=== PATIENT | female | born 1990 | race Caucasian/White ===

== ENCOUNTER → 2019-12-29 11:24 | Outpatient (BNVA) | payer MEDICAID, SELFPAY | PROVIDERS: PCP Student in an Organized Health Care Education/Training Program; Referring Provider Student in an Organized Health Care Education/Training Program; Visit Provider Obstetrics & Gynecology | DX: O00.90 Unspecified ectopic pregnancy without intrauterine pregnancy (principal) | CPT/HCPCS: 99213 ==

== ENCOUNTER 2019-12-31 13:00 | Outpatient (REF) | payer MEDICAID, SELFPAY ==
[2019-12-31 12:07] LABS: HCG Quantitative 9 mIU/mL
== END 2019-12-31 13:01 | disposition home or self-care (01) ==
LOC: HO.LAB 13:00
PROVIDERS: PCP Student in an Organized Health Care Education/Training Program; Visit Provider Obstetrics & Gynecology
DX: O00.90 Unspecified ectopic pregnancy without intrauterine pregnancy (principal)
CPT/HCPCS: 84702

== ENCOUNTER 2020-01-16 09:06 | Outpatient (REF) | payer MEDICAID, SELFPAY ==
[2020-01-16 11:03] LABS: HCG Quantitative < 2 mIU/mL
== END 2020-01-16 09:07 | disposition home or self-care (01) ==
LOC: HO.LAB 09:06
PROVIDERS: PCP Student in an Organized Health Care Education/Training Program; Visit Provider Obstetrics & Gynecology
DX: O00.90 Unspecified ectopic pregnancy without intrauterine pregnancy (principal); Z3A.00 Weeks of gestation of pregnancy not specified
CPT/HCPCS: 84702

== ENCOUNTER 2020-03-31 09:39 | Outpatient (REF) | payer MEDICAID, SELFPAY ==
[2020-04-06 02:32] LABS: HPV mRNA E6/E7 rflx Not Detected (Not Detected)
== END 2020-03-31 09:40 | disposition home or self-care (01) ==
LOC: HO.LAB 09:39
PROVIDERS: Visit Provider Obstetrics & Gynecology
DX: Z12.4 Encounter for screening for malignant neoplasm of cervix (principal)
CPT/HCPCS: 36415; 87624; 88142

== ENCOUNTER → 2020-08-25 10:53 | Outpatient (BNVA) | payer MEDICAID, SELFPAY | PROVIDERS: Visit Provider Advanced Practice Midwife | DX: Z32.01 Encounter for pregnancy test, result positive (principal); Z87.59 Personal history of other complications of pregnancy, childbirth and the puerperium | CPT/HCPCS: 81025; 99212 ==

== ENCOUNTER 2020-08-25 12:09 | Outpatient (REF) | payer MEDICAID, SELFPAY ==
--- NOTE | ~2020-08-25 | US_ITS ---
EXAMINATION: ULTRASOUND OB PELVIS AND TRANSVAGINAL CLINICAL INFORMATION: Uncertain LMP. Positive test. COMPARISON: None TECHNIQUE: Transabdominal and transvaginal imaging of pelvis is performed. FINDINGS: The uterus is anteverted with a solitary gestational sac visualized. Yolk sac is visualized. No pole, movement or heart rate seen. The gestational sac measures 5 weeks 3 days. There is echogenic calcification in the cervix. The right ovary measures 2.8 x 1.2 x 1.7 cm. It appears unremarkable. The left ovary measures 4.0 x 2.5 x 2.3 cm with a small corpus luteal cyst measuring 2.5 x 2.2 x 2.0 cm. There is trace free fluid adjacent to the left ovary. No fluid seen in the cul-de-sac. US/US OB pelvic and transvaginal IMPRESSION: Single intrauterine gestational sac but no pole seen yet. Based on gestational sac measurements the ultrasound gestational age is 5 weeks and 3 days. By LMP 6 weeks 0 days. Recommend follow-up ultrasound in 1-2 weeks. Small 2.5 cm corpus luteal cyst left ovary.
== END 2020-08-25 12:10 | disposition home or self-care (01) ==
LOC: HO.US 12:09
PROVIDERS: PCP Student in an Organized Health Care Education/Training Program; Visit Provider Advanced Practice Midwife
DX: Z34.90 Encounter for supervision of normal pregnancy, unspecified, unspecified trimester (principal)
CPT/HCPCS: 76801; 76817

== ENCOUNTER 2020-09-03 13:22 | Outpatient (REF) | payer MEDICAID, SELFPAY ==
--- NOTE | ~2020-09-03 | US_ITS ---
EXAMINATION: OBSTETRICAL ULTRASOUND, FIRST TRIMESTER HISTORY: 30-year-old at the 7.2 weeks of gestation Viability LMP: 07/14/2020 COMPARISON: 08/25/2020 TECHNIQUE: Real time transabdominal imaging with color and M-mode Doppler. FINDINGS: A single, live IUP CRL of 5.7 mm c/w 6.3wks is noted. Heart Rate: 122 beats per minute. Transvaginal ultrasound was performed using an endovaginal probe. Both maternal ovaries are seen and appear normal. GESTATIONAL AGE: 1. GA from LMP: 7.2 wks 2. GA from AUA: 6.3 wks ESTIMATED DATE OF DELIVERY: 1. SOLANGE from LMP: 04/20/2021 2. SOLANGE from AUA: 04/26/2021 US/US OB transvaginal IMPRESSION: 1. A single live IUP 2. CRL is consistent with 6.3 weeks of gestation. Although her ultrasound on 08/25/2020 confirmed the LMP based SOLANGE of 04/20/2021, there was based on the mean sac diameter. The patient is the not certain of her LMP. Given that today's SOLANGE of 04/26/2021 is based on the CRL, I would recommend adjusting her SOLANGE to 04/26/2021. No specific ultrasound followup appears needed at this time. The patient was advised that ultrasound cannot guarantee the of a normal . Thank you very much for this referral. This note was generated with a voice recognition program. Please excuse any errors which may have been overlooked during my review of this note. Sometimes these errors may affect the content or meaning of a given sentence.
--- NOTE | ~2020-09-03 | US_ITS ---
EXAMINATION: OBSTETRICAL ULTRASOUND, FIRST TRIMESTER HISTORY: 30-year-old at the 7.2 weeks of gestation Viability LMP: 07/14/2020 COMPARISON: 08/25/2020 TECHNIQUE: Real time transabdominal imaging with color and M-mode Doppler. FINDINGS: A single, live IUP CRL of 5.7 mm c/w 6.3wks is noted. Heart Rate: 122 beats per minute. Transvaginal ultrasound was performed using an endovaginal probe. Both maternal ovaries are seen and appear normal. GESTATIONAL AGE: 1. GA from LMP: 7.2 wks 2. GA from AUA: 6.3 wks ESTIMATED DATE OF DELIVERY: 1. SOLANGE from LMP: 04/20/2021 2. SOLANGE from AUA: 04/26/2021 US/US OB <= 14 weeks fetus IMPRESSION: 1. A single live IUP 2. CRL is consistent with 6.3 weeks of gestation. Although her ultrasound on 08/25/2020 confirmed the LMP based SOLANGE of 04/20/2021, there was based on the mean sac diameter. The patient is the not certain of her LMP. Given that today's SOLANGE of 04/26/2021 is based on the CRL, I would recommend adjusting her SOLANGE to 04/26/2021. No specific ultrasound followup appears needed at this time. The patient was advised that ultrasound cannot guarantee the of a normal infant. Thank you very much for this referral. This note was generated with a voice recognition program. Please excuse any errors which may have been overlooked during my review of this note. Sometimes these errors may affect the content or meaning of a given sentence.
== END 2020-09-03 13:23 | disposition home or self-care (01) ==
LOC: HO.US 13:22
PROVIDERS: Visit Provider Advanced Practice Midwife
DX: O26.891 Other specified pregnancy related conditions, first trimester (principal); Z87.59 Personal history of other complications of pregnancy, childbirth and the puerperium
CPT/HCPCS: 76801; 76817

== ENCOUNTER → 2020-09-09 13:48 | Outpatient (BNVA) | payer MEDICAID, SELFPAY | PROVIDERS: PCP Student in an Organized Health Care Education/Training Program; Visit Provider Advanced Practice Midwife | DX: Z34.91 Encounter for supervision of normal pregnancy, unspecified, first trimester (principal); Z3A.08 8 weeks gestation of pregnancy | CPT/HCPCS: 99212 ==

== ENCOUNTER 2020-09-13 11:40 | Outpatient (REF) | payer MEDICAID, SELFPAY ==
[2020-09-13 13:20] LABS: Hematocrit 36.1 % (37-47); Hemoglobin 12.3 g/dl (12.0-16.0); Mean Corpuscular HGB Conc 34.1 g/dl (31.0-35.0); Mean Corpuscular Hemoglobin 31.9 pg (27.0-33.0); Mean Corpuscular Volume 93.8 fL (80-98); Mean Platelet Volume 11.4 fL (9.4-12.3); Platelet Count 246 X10*3/uL (160-400); Red Blood Count 3.85 X10*6/uL (4.20-5.50); Red Cell Distribution Width 11.9 % (11.0-16.0); White Blood Count 8.1 X10*3/uL (4.8-10.8)
[2020-09-13 13:39] LABS: Amphetamine Screen Urine Not Detected (Not Detect); Barbiturates, Urine Not Detected (Not Detect); Benzodiazepines Screen Urine Not Detected (Not Detect); Cannabinoid Screen Urine POSITIVE (Not Detect); Cocaine Screen Urine Not Detected (Not Detect); Opiate Screen Urine Not Detected (Not Detect); Phencyclidine Screen Urine Not Detected (Not Detect)
[2020-09-13 14:06] LABS: Syphilis Screen Nonreactive (Nonreactive)
[2020-09-14 08:51] LABS: Rubella IgG Antibody 3.41 Index
[2020-09-14 09:16] LABS: HBsAGNum1 0.19 S/CO (0.00-0.99); Hepatitis B Surface Antigen Negative (Negative)
[2020-09-14 10:23] LABS: ~HepC Num1 0.19 S/CO (0.00-0.79); ~Hepatitis C Antibody Nonreactive (Nonreactive)
[2020-09-14 10:28] LABS: HIV AB/AG Nonreactive (Nonreactive)
[2020-09-14 14:06] LABS: Hematocrit 35.2 % (35.0-45.0); Hemoglobin 12.4 g/dL (11.7-15.5); MCH 32.4 pg (27.0-33.0); MCV 91.9 fL (80.0-100.0); RBC 3.83 Million/uL (3.80-5.10); RDW 12.1 % (11.0-15.0)
== END 2020-09-13 11:41 | disposition home or self-care (01) ==
LOC: HO.LAB 11:40
PROVIDERS: PCP Student in an Organized Health Care Education/Training Program; Visit Provider Advanced Practice Midwife
DX: Z34.90 Encounter for supervision of normal pregnancy, unspecified, unspecified trimester (principal)
CPT/HCPCS: 80307; 83020; 85014; 85018; 85027; 85041; 86762; 86780; 86787; 86803; 86850; 86900; 86901; 87086; 87340; 87389

== ENCOUNTER 2020-09-14 21:09 | Emergency (ER) | payer MEDICAID, SELFPAY ==
[2020-09-14 21:30] VITALS: BP 145/73; PULSE 77; RESP 18; TEMP 36.5; O2SAT 98; BMI 23.8
[2020-09-14 22:20] LABS: MANUAL DIFF FLAG NO
[2020-09-14 22:22] LABS: Basophils Percent Auto 0.3 % (0-2); Eosinophils Percent Auto 0.2 % (0-4); Hematocrit 37.7 % (37-47); Hemoglobin 12.7 g/dl (12.0-16.0); Imm Gran Abs Auto 0.02 X10*3/uL (0.00-0.03); Imm Gran Pct Auto 0.2 % (0.0-0.4); Lymphocytes Absolute Auto 2.7 X10*3/uL (1.2-4.9); Lymphocytes Percent Auto 27.2 % (20-40); Mean Corpuscular HGB Conc 33.7 g/dl (31.0-35.0); Mean Corpuscular Hemoglobin 31.4 pg (27.0-33.0); Mean Corpuscular Volume 93.3 fL (80-98); Mean Platelet Volume 10.3 fL (9.4-12.3); Monocytes Absolute Auto 0.8 X10*3/uL (0.1-1.2); Monocytes Percent Auto 7.5 % (2-11); Neutrophils Absolute Auto 6.5 X10*3/uL (2.0-8.3); Neutrophils Percent Auto 64.6 % (45-73); Platelet Count 275 X10*3/uL (160-400); Red Blood Count 4.04 X10*6/uL (4.20-5.50); Red Cell Distribution Width 11.8 % (11.0-16.0); White Blood Count 10.1 X10*3/uL (4.8-10.8)
[2020-09-14 22:38] LABS: Glucose Urine UA NEG (NEG); Leukocyte Esterase Urine NEG (NEG); Nitrite Urine NEG (NEG); Specific Gravity - Urine >= 1.030 (1.005-1.025); Urine Blood NEG (NEG); Urine Ketones 5 MG/DL (NEG); Urine Protein NEG (NEG-TRACE)
[2020-09-14 22:40] LABS: Appearance Urine CLEAR; Color Urine YELLOW
[2020-09-14 22:41] LABS: UPreg QC Valid YES; Urine Pregnancy POSITIVE (NEGATIVE)
[2020-09-14 22:53] LABS: Alanine Aminotransferase 7 U/L (0-31); Albumin Level 4.4 g/dL (3.5-5.0); Alkaline Phosphatase 60 U/L (39-117); Anion Gap 12 (12-20); Aspartate Amino Transferase 15 U/L (5-31); Bilirubin Direct 0.2 mg/dL (0.0-0.5); Bilirubin Total 0.7 mg/dL (0.0-1.0); Blood Urea Nitrogen 11 mg/dL (9-16); Calcium 10.1 mg/dL (8.4-10.2); Carbon Dioxide 25 mmol/L (22-29); Chloride 104 mmol/L (96-108); Creatinine Clr Calc Pharmacy 103.4; Estimated Glomerular Filt Rate > 60; Glucose Random 85 mg/dL (60-115); Lipase 7 U/L (8-78); Sodium 137 mmol/L (135-145); Total Protein 7.2 g/dL (6.5-8.0)
--- NOTE | 2020-09-14 23:46 | ED.NAVMDI ---
HPI - Nausea/Vomiting/Diarrhea General Chief complaint: Nausea/Vomiting/Diarrhea Stated complaint: nausea, vomitting Time Seen by Provider: 09/14/20 23:43 Source: patient and old records reviewed Mode of arrival: ambulatory Limitations: no limitations History of Present Illness HPI Narrative: 30 yo female approx 8 weeks here with c/o n/v all day feels dehydrated MD elicited complaint: nausea and vomiting Pertinent past history: other (8 weeks ) Onset (ago): day(s) (all day) Description of vomiting: food contents and watery Associated nausea: Yes Associated abdominal pain: No Severity: moderate Exacerbating factors: eating Relieving factors: none Context: other (newly ) Associated symptoms: denies other symptoms Related Data Previous Rx's Medication Instructions Recorded vitamins no.119-iron 1 tab PO DAILY 90 Days #90 tab 09/09/20 fumarate 29 mg-folic acid 1 mg tablet doxylamine succinate 25 mg PO BID PRN #60 tab 09/14/20 metoclopramide HCl [Reglan] 10 mg PO Q6H PRN #30 tab 09/14/20 pyridoxine (vitamin B6) 25 mg PO DAILY PRN #60 tab 09/14/20 Allergies Allergy/AdvReac Type Severity Reaction Status Date / Time apple [Apple] Allergy Unknown ANGIOEDEMA Verified 09/14/20 21:30 bee pollen [BEE STINGS] Allergy Unknown ANAPHYLACTIC Verified 09/14/20 21:30 SHOCK nitrofurantoin Allergy Unknown NAUSEA & Verified 09/14/20 21:30 [From MACROBID] VOMITING Review of Systems Review of Systems: Constitutional : No Weight loss, No Fever, No Chills ENT/Mouth : No sore throat, No Rhinorrhea Eyes: No Swelling, No Redness Cardiovascular : No Chest Pain, No SOB, NoEdema Respiratory : No Cough, No Sputum, No Wheezing Gastrointestinal : Positive Nausea, Positive Vomiting, no Diarrhea, no abdominal Pain, No Hematochezia, No Melena Genitourinary : No Dysuria, No Urinary Frequency, No Hematuria, No Urgency Musculoskeletal : No joint pain, No Myalgias, No Joint Swelling Skin : No Skin Lesions, No rash Neuro : pos Weakness, No Numbness, No Dizziness, No Headache Psych : No Anxiety/Panic, No Depression Heme/Lymph: No Bruising, No Lymphadenopathy Endocrine : No Polyuria, No Polydipsia All other systems reviewed and are negative. Gastrointestinal: Gastrointestinal: Reports nausea PMFSH Past Medical History Attestation statement: The following information was validated with the patient. 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 at home: Yes Alcohol intake: current Alcohol intake frequency: holidays/special occasions only Patient Tobacco Use Status: Never used Tobacco Use of substances other than those prescribed or required for medical reasons: No Trauma History: Neg trauma HX per pt Special shena needs: No Agree to transfusion: Yes Advance Directives: No Advance Directives Information Provided: No Patient : Yes Sexual orientation: Straight/Heterosexual Gender identity: female Physical Exam Vital Signs: Vital Signs: Last Vital Signs Temp 97.7 F 09/14/20 21:30 Pulse 60 09/15/20 00:08 Resp 15 09/15/20 00:08 BP 117/64 09/15/20 00:08 Pulse Ox 98 09/15/20 00:08 Body Mass Index 23.8 Appearance: Alert. Oriented X3. No acute distress. Eyes: Pupils equal, round and reactive to light. ENT: Pharynx dry MM Neck: Normal inspection. Neck supple. CVS: Normal heart rate and rhythm. Pulses normal. Respiratory: No respiratory distress. Breath sounds normal. Abdomen: Soft and nontender. Skin: Skin warm and dry. Normal skin color. Normal skin turgor. Extremities: No lower extremity edema. No calf ttp Neuro: Oriented X 3. No motor deficit. No sensory deficit. Course Course Course Narrative: patient feels much better able to tolerate PO, stable for DC MDM - Nausea/Vomiting/Diarrhea MDM Narrative Medical decision making narrative: 30 yo female here with weakness after c/o n/v all day today she is approx 8 weeks IUP confirmed on recent US she is not having bleeding or abdominal pain will hydrate and given anti emetics, can follow up with [facility] Lab Data Result diagrams: 09/14/20 22:12 09/14/20 22:12 Labs: Lab Results 09/14/20 09/14/20 09/14/20 Range/Units 22:12 22:12 22:12 WBC 10.1 (4.8-10.8) X10*3/uL RBC 4.04 L (4.20-5.50) X10*6/uL Hgb 12.7 (12.0-16.0) g/dl Hct 37.7 (37-47) % MCV 93.3 (80-98) fL MCH 31.4 (27.0-33.0) pg MCHC 33.7 (31.0-35.0) g/dl RDW 11.8 (11.0-16.0) % Plt Count 275 (160-400) X10*3/uL MPV 10.3 (9.4-12.3) fL Immature Gran % (Auto) 0.2 (0.0-0.4) % Neut % (Auto) 64.6 (45-73) % Lymph % (Auto) 27.2 (20-40) % [place] % (Auto) 7.5 (2-11) % Eos % (Auto) 0.2 (0-4) % Baso % (Auto) 0.3 (0-2) % Lymph # (Auto) 2.7 (1.2-4.9) X10*3/uL [place] # (Auto) 0.8 (0.1-1.2) X10*3/uL Eos # (Auto) 0.0 (0.0-0.4) X10*3/uL Baso # (Auto) 0.0 (0.0-0.2) X10*3/uL Abs Immat Gran (auto) 0.02 (0.00-0.03) X10*3/uL Absolute Neuts (auto) 6.5 (2.0-8.3) X10*3/uL Absolute Nucleated RBC 0.000 (0.0-0.012) X10*3/uL Nucleated RBC % (auto) 0.0 (0.0-0.2) /100WBC Sodium 137 (135-145) mmol/L Potassium 4.0 (3.3-5.1) mmol/L Chloride 104 (96-108) mmol/L Carbon Dioxide 25 (22-29) mmol/L Anion Gap 12 (12-20) BUN 11 (9-16) mg/dL Creatinine 0.60 (0.5-1.4) mg/dL Estim Creat Clear Calc 103.4 Estimated GFR > 60 Random Glucose 85 (60-115) mg/dL Calcium 10.1 (8.4-10.2) mg/dL Total Bilirubin 0.7 (0.0-1.0) mg/dL Direct Bilirubin 0.2 (0.0-0.5) mg/dL AST 15 (5-31) U/L ALT 7 (0-31) U/L Alkaline Phosphatase 60 (39-117) U/L Total Protein 7.2 (6.5-8.0) g/dL Albumin 4.4 (3.5-5.0) g/dL Lipase 7 L (8-78) U/L Urine Color YELLOW Urine Appearance CLEAR Urine pH 6.0 (5.0-8.0) Ur Specific [place] >= 1.030 H (1.005-1.025) Urine Protein NEG (NEG-TRACE) MG/DL Urine Glucose (UA) NEG (NEG) MG/DL Urine Ketones 5 (NEG) MG/DL Urine Blood NEG (NEG) Urine Nitrite NEG (NEG) Ur Leukocyte Esterase NEG (NEG) Urine Test (NEGATIVE) 09/14/20 Range/Units 22:12 WBC (4.8-10.8) X10*3/uL RBC (4.20-5.50) X10*6/uL Hgb (12.0-16.0) g/dl Hct (37-47) % MCV (80-98) fL MCH (27.0-33.0) pg MCHC (31.0-35.0) g/dl RDW (11.0-16.0) % Plt Count (160-400) X10*3/uL MPV (9.4-12.3) fL Immature Gran % (Auto) (0.0-0.4) % Neut % (Auto) (45-73) % Lymph % (Auto) (20-40) % [place] % (Auto) (2-11) % Eos % (Auto) (0-4) % Baso % (Auto) (0-2) % Lymph # (Auto) (1.2-4.9) X10*3/uL [place] # (Auto) (0.1-1.2) X10*3/uL Eos # (Auto) (0.0-0.4) X10*3/uL Baso # (Auto) (0.0-0.2) X10*3/uL Abs Immat Gran (auto) (0.00-0.03) X10*3/uL Absolute Neuts (auto) (2.0-8.3) X10*3/uL Absolute Nucleated RBC (0.0-0.012) X10*3/uL Nucleated RBC % (auto) (0.0-0.2) /100WBC Sodium (135-145) mmol/L Potassium (3.3-5.1) mmol/L Chloride (96-108) mmol/L Carbon Dioxide (22-29) mmol/L Anion Gap (12-20) BUN (9-16) mg/dL Creatinine (0.5-1.4) mg/dL Estim Creat Clear Calc Estimated GFR Random Glucose (60-115) mg/dL Calcium (8.4-10.2) mg/dL Total Bilirubin (0.0-1.0) mg/dL Direct Bilirubin (0.0-0.5) mg/dL AST (5-31) U/L ALT (0-31) U/L Alkaline Phosphatase (39-117) U/L Total Protein (6.5-8.0) g/dL Albumin (3.5-5.0) g/dL Lipase (8-78) U/L Urine Color Urine Appearance Urine pH (5.0-8.0) Ur Specific [place] (1.005-1.025) Urine Protein (NEG-TRACE) MG/DL Urine Glucose (UA) (NEG) MG/DL Urine Ketones (NEG) MG/DL Urine Blood (NEG) Urine Nitrite (NEG) Ur Leukocyte Esterase (NEG) Urine Test POSITIVE H (NEGATIVE) Discharge Plan Discharge Clinical Impression: Hyperemesis Patient Disposition: Home, Self-Care Instructions: Hyperemesis Gravidarum (ED) Additional Instructions: return to ED for any worsening symptoms or concerns please follow up with your OBGYN provider Prescriptions: New doxylamine succinate 25 mg tablet 25 mg PO BID PRN (Reason: nausea and vomiting) Qty: 60 RF: 0 pyridoxine (vitamin B6) 25 mg tablet 25 mg PO DAILY PRN (Reason: nausea and vomiting) Qty: 60 RF: 0 metoclopramide HCl [Reglan] 10 mg tablet 10 mg PO Q6H PRN (Reason: nausea and vomiting) Qty: 30 RF: 0 No Action PNV 119-iron fum-folic acid 29 mg iron- 1 mg tablet 1 tab PO DAILY 90 Days Qty: 90 RF: 0 Stand Alone Forms: Work/School Release
[2020-09-15 00:08] VITALS: BP 117/64; PULSE 60; RESP 15; O2SAT 98
[2020-09-15] MEDS: 0.9 % Sodium Chloride 1,000 ML 999 ML IVCONT ×2 (00:10→01:17)
[2020-09-15] MEDS: diphenhydrAMINE HCL 50 MG/ML VIAL 25 MG IVPUSH (00:22)
[2020-09-15] MEDS: Metoclopramide HCl 10 MG/2 ML VIAL IVPUSH (00:22)
== END 2020-09-15 03:08 | disposition home or self-care (01) ==
LOC: HO.ED 23:57
PROVIDERS: Emergency Provider Emergency Medicine; PCP Student in an Organized Health Care Education/Training Program
DX: O21.0 Mild hyperemesis gravidarum (principal); Z3A.08 8 weeks gestation of pregnancy
CPT/HCPCS: 36415; 80048; 80076; 81003; 81025; 83690; 85025; 96361; 96374; 96375; 99284; J1200; J2765

== ENCOUNTER 2020-09-20 10:06 | Outpatient (REF) | payer MEDICAID, SELFPAY ==
[2020-09-20 17:51] LABS: CT PCR NOT DETECTED (Not Detect.); NG PCR NOT DETECTED (Not Detect.)
[2020-09-21 09:22] LABS: BV Int Neg Control Negative (Negative); BV Int Pos Control Positive (Positive)
[2020-09-24 01:26] LABS: HPV mRNA E6/E7 rflx Not Detected (Not Detected)
== END 2020-09-20 10:07 | disposition home or self-care (01) ==
LOC: HO.LAB 10:06
PROVIDERS: Visit Provider Advanced Practice Midwife
DX: O34.41 Maternal care for other abnormalities of cervix, first trimester (principal); Z3A.08 8 weeks gestation of pregnancy
CPT/HCPCS: 81003; 87480; 87491; 87510; 87591; 87624; 87660; 88142; 99212

== ENCOUNTER 2020-09-28 10:28 | Outpatient (REF) | payer MEDICAID, SELFPAY ==
[2020-09-28 12:17] LABS: Glucose 1 Hour PP 50gm Dose 143 mg/dL (60-140)
== END 2020-09-28 10:29 | disposition home or self-care (01) ==
LOC: HO.LAB 10:28
PROVIDERS: PCP Student in an Organized Health Care Education/Training Program; Visit Provider Advanced Practice Midwife
DX: O99.810 Abnormal glucose complicating pregnancy (principal); O34.40 Maternal care for other abnormalities of cervix, unspecified trimester; Z98.890 Other specified postprocedural states
CPT/HCPCS: 36415

== ENCOUNTER 2020-10-01 11:12 | Outpatient (REF) | payer MEDICAID, SELFPAY ==
--- NOTE | ~2020-10-01 | US_ITS ---
EXAMINATION: OBSTETRICAL ULTRASOUND, FIRST TRIMESTER HISTORY: 30-year-old at 10.3 weeks of gestation NT screening COMPARISON: 09/03/2020 TECHNIQUE: Real time transabdominal imaging with color and M-mode Doppler. FINDINGS: A single, live IUP CRL of 38.9 mm c/w 10.6wks is noted. Heart Rate: 165 beats per minute. Normal yolk sac seen. NT: The patient is too early for the NT measurement. However the nuchal area appeared the grossly normal. There is no evidence of cystic hygroma. The embryo appears sonographically wnl for this GA. Both maternal ovaries are seen and appear normal. GESTATIONAL AGE: 1. Established GA: 10.3 wks 2. GA from AUA: 10.6 wks ESTIMATED DATE OF DELIVERY: 1. Established SOLANGE: 04/26/2021 2. SOLANGE from AUA: 04/22/2021 US/US OB <= 14 weeks fetus IMPRESSION: 1. A single active fetus 2. Size equals dates, CRL is consistent with 10 .6 weeks, confirming her due date of 04/26/2021. MFM Consultation: 11 she is too early for the official nuchal translucency measurement, she is far enough along to have the N IPT drawn. We discussed the limitations of the test and she agreed. The result should be available in approximately 7 days I briefly discussed the differences between screening test and diagnostic tests. I also informed her about the availability of amniocentesis and its risks. The procedure can be performed starting at approximately 16 weeks if clinically indicated., A follow up at 18 weeks for survey has been scheduled. Thank you very much for this referral. Total time 20 minutes. The time spent was devoted to counseling the patient about the disease and diagnosis, coordinating care including reviewing her records, pertinent lab data and studies, as well as discussing diagnostic evaluation and workup, plan therapeutic interventions and future disposition of care. This includes any additional research needed to obtain further information in formulating the plan of care of this patient. This note was generated with a voice recognition program. Please excuse any errors which may have been overlooked during my review of this note. Sometimes these errors may affect the content or meaning of a given sentence.
== END 2020-10-01 11:13 | disposition home or self-care (01) ==
LOC: HO.US 11:12
PROVIDERS: PCP Student in an Organized Health Care Education/Training Program; Visit Provider Advanced Practice Midwife
DX: Z36.82 Encounter for antenatal screening for nuchal translucency (principal)
CPT/HCPCS: 76801

== ENCOUNTER → 2020-10-18 13:00 | Outpatient (BNVA) | payer MEDICAID, SELFPAY | PROVIDERS: Visit Provider Advanced Practice Midwife | DX: O09.11 Supervision of pregnancy with history of ectopic pregnancy, first trimester (principal); O24.419 Gestational diabetes mellitus in pregnancy, unspecified control; Z3A.12 12 weeks gestation of pregnancy | CPT/HCPCS: 81003; 99212 ==

== ENCOUNTER → 2020-11-15 12:49 | Outpatient (BNVA) | payer MEDICAID, SELFPAY | PROVIDERS: Visit Provider Advanced Practice Midwife | DX: Z34.82 Encounter for supervision of other normal pregnancy, second trimester (principal); Z3A.16 16 weeks gestation of pregnancy; Z36.3 Encounter for antenatal screening for malformations | CPT/HCPCS: 99212 ==

== ENCOUNTER 2020-11-26 14:26 | Outpatient (REF) | payer MEDICAID, SELFPAY ==
--- NOTE | ~2020-11-26 | US_ITS ---
EXAMINATION: US OBSTETRICAL CLINICAL INFORMATION: A 30-year-old at 18.3 weeks of gestation Screening for anomaly COMPARISON: 10/01/2020 TECHNIQUE: Real-time transabdominal ultrasound was performed using C1-5 megahertz transducer. FINDINGS: A single, active, fetus is seen in vertex presentation. The placenta is posterior, low-lying placenta (1.8 cm), and the amniotic fluid volume is wnl. MEASUREMENTS: 1. Biparietal Diameter: 3.9 cm; 18.0 wks 2. Occipital Frontal Diameter: 5.1 cm 3. Head Circumference: 15.0 cm; 18.1 wks 4. Abdominal Circumference: 13.2 cm; 18.5 wks 5. Femur Length: 2.8 cm; 18.4 wks 6. Humerus Length: 6 2.6 cm; 18.2 wks 7. Tibia Length: 2.3 cm; 18.2 wks 8. Ulna Length: 2.7 cm; 20.0 wks 9. Lateral ventricle: 0.53 cm 10. Cerebellum: 1.8 cm; 18.3 wks 11. Cisterna Magna: 0.35 cm 12. Nuchal Fold: 3.32 mm 13. Heart Rate: 152 beats per minute Rt ovary: normal Lt ovary: normal Cervical length 3.7 cm on T/A. GESTATIONAL AGE: 1. Established GA: 18.3 wks 2. GA from [facility]: 18.3 wks ESTIMATED DATE OF DELIVERY: 1. Established SOLANGE: 04/26/2021 2. SOLANGE from AU: 04/26/2021 ANATOMY: The visualized anatomy includes but not limited to: 1. Cranium: Normal 2. Intracranial anatomy: cavum septum pellucidi, lateral ventricles, choroid plexus, cerebellum, posterior fossa, third and fourth ventricles. 3. face: orbits, lip/palate, profile, nasal bone 4. Heart: four-chamber view of the heart, ventricular septum, foramen ovale, pulmonary vein, left and right outflow tracts, three-vessel view, 3 vessel trachea view, aortic and ductal arches, situs.. 5. Diaphragm: Normal 6. Abdominal wall: Normal 7. Cord Insertion: Normal 8. Spine: Cervical, thoracic, lumbar, sacral. 9. Stomach: Normal size and shape 10. Right Kidney: Normal 11. Left Kidney: Normal 12. 3 vessel cord: Normal 13. Upper extremity: Open hands, fifth digit. 14. Lower extremity: Tibia, fibula, bilateral feet. 15. Bladder: Normal 16. Genitalia: Female, patient aware US/US OB /maternal detail IMPRESSION: 1. Single, living, intrauterine with appropriate biometry. 2. Normal survey DISCUSSION: I reviewed today's ultrasound findings. We discussed the limitations of ultrasound in diagnosing aneuploidy and other congenital abnormalities. I reviewed the differences between screening test and diagnostic test. Amniocentesis was discussed and declined. She was informed that the baseline incidence of congenital abnormalities is approximately 3-5%. Not all these conditions are diagnosable in utero. I informed the patient that the placenta is within 2 cm the cervix. A follow-up at approximately 28 weeks is suggested. I reassured her that by then that the low-lying placenta will most likely have resolved. RECOMMENDATIONS: 1. Follow-up at approximately 28 weeks (not scheduled). Thank you for allowing me to participate in her care. Total time 30 minutes. The time spent was devoted to counseling the patient about the disease and diagnosis, coordinating care including reviewing her records, pertinent lab data and studies, as well as discussing diagnostic evaluation and workup, plan therapeutic interventions and future disposition of care. This includes any additional research needed to obtain further information in formulating the plan of care of this patient. This note was generated with a voice recognition program. Please excuse any errors which may have been overlooked during my review of this note. Sometimes these errors may affect the content or meaning of a given sentence.
== END 2020-11-26 14:27 | disposition home or self-care (01) ==
LOC: HO.US 14:26
PROVIDERS: PCP Student in an Organized Health Care Education/Training Program; Visit Provider Advanced Practice Midwife
DX: Z34.92 Encounter for supervision of normal pregnancy, unspecified, second trimester (principal); Z36.3 Encounter for antenatal screening for malformations
CPT/HCPCS: 76811

== ENCOUNTER → 2020-12-13 13:28 | Outpatient (BNVA) | payer MEDICAID, SELFPAY | PROVIDERS: Visit Provider Advanced Practice Midwife | DX: O09.892 Supervision of other high risk pregnancies, second trimester (principal); D06.9 Carcinoma in situ of cervix, unspecified; O09.292 Supervision of pregnancy with other poor reproductive or obstetric history, second trimester; O09.12 Supervision of pregnancy with history of ectopic pregnancy, second trimester; O99.810 Abnormal glucose complicating pregnancy; O44.42 Low lying placenta NOS or without hemorrhage, second trimester; Z36.3 Encounter for antenatal screening for malformations; Z3A.20 20 weeks gestation of pregnancy | CPT/HCPCS: 81003; 99212 ==

== ENCOUNTER → 2020-12-28 09:57 | Outpatient (BNVA) | payer MEDICAID, SELFPAY | PROVIDERS: Visit Provider Advanced Practice Midwife | DX: O24.415 Gestational diabetes mellitus in pregnancy, controlled by oral hypoglycemic drugs (principal); Z3A.23 23 weeks gestation of pregnancy | CPT/HCPCS: 81003; 99212 ==

== ENCOUNTER → 2020-12-30 10:20 | Outpatient (BNVA) | payer MEDICAID, SELFPAY | PROVIDERS: Visit Provider Obstetrics & Gynecology ==

== ENCOUNTER → 2021-01-04 11:40 | Outpatient (BNVA) | payer MEDICAID, SELFPAY | PROVIDERS: Visit Provider Obstetrics & Gynecology | DX: O24.419 Gestational diabetes mellitus in pregnancy, unspecified control (principal); O44.42 Low lying placenta NOS or without hemorrhage, second trimester; Z3A.24 24 weeks gestation of pregnancy; Z98.890 Other specified postprocedural states | CPT/HCPCS: 99212 ==

== ENCOUNTER 2021-01-07 09:01 | Outpatient (REF) | payer MEDICAID, SELFPAY ==
--- NOTE | ~2021-01-07 | US_ITS ---
EXAMINATION: OBSTETRICAL ULTRASOUND, Follow up HISTORY: 30-year-old at the 24.3 weeks of gestation History of LEEP Size date discrepancy Marginal placenta previa COMPARISON: 11/26/2020 TECHNIQUE: Real time transabdominal imaging with color and M-mode Doppler. Transvaginal ultrasound was performed using an endovaginal probe. PRESENTATION: Breech PLACENTA LOCATION: Posterior, marginal placenta previa AMNIOTIC FLUID: Normal MEASUREMENTS: 1. Biparietal Diameter: 5.6 cm; 23.2 wks 2. Head Circumference: 21.4 cm; 23.4 wks 3. Abdominal Circumference: 18.9 cm; 23.5 wks 4. Femur Length: 4.4 cm; 24.3 wks 5. Heart Rate: 121 beats per minute WEIGHT: EFW: 643 grams (1 lbs 7 oz) -- 21 %. Cervical length was 4.3 cm on transvaginal ultrasound. The inferior edge of the placenta was abutting the internal os consistent with marginal placenta previa. GESTATIONAL AGE: 1. Established GA: 24.3 wks 2. GA from AUA: 23.6 wks ESTIMATED DATE OF DELIVERY: 1. Established SOLANGE: 04/26/2021 2. SOLANGE from AUA: 04/30/2021 US/US OB transvaginal IMPRESSION: 1. A single active fetus is in breech presentation 2. Size equals dates 3. Normal cervical length 4. Marginal placenta previa I informed her that the marginal placenta previa is still present. Her cervical length is within normal limits. I gave her previa precautions and advised her to be on pelvic rest. She had a full-term vaginal delivery approximately 5 years ago. I informed her that if the previa does not resolve, she would need to deliver by section. However, I'm optimistic that the previa will resolve by third trimester. Thank you for allowing me to participate in her care. Total time 30 minutes. The time spent was devoted to counseling the patient about the disease and diagnosis, coordinating care including reviewing her records, pertinent lab data and studies, as well as discussing diagnostic evaluation and workup, plan therapeutic interventions and future disposition of care. This includes any additional research needed to obtain further information in formulating the plan of care of this patient. This note was generated with a voice recognition program. Please excuse any errors which may have been overlooked during my review of this note. Sometimes these errors may affect the content or meaning of a given sentence.
== END 2021-01-07 09:02 | disposition home or self-care (01) ==
LOC: HO.US 09:01
PROVIDERS: Visit Provider Advanced Practice Midwife
DX: O24.419 Gestational diabetes mellitus in pregnancy, unspecified control (principal); O44.22 Partial placenta previa NOS or without hemorrhage, second trimester; O26.842 Uterine size-date discrepancy, second trimester; O34.42 Maternal care for other abnormalities of cervix, second trimester; D06.9 Carcinoma in situ of cervix, unspecified; Z3A.24 24 weeks gestation of pregnancy; Z88.1 Allergy status to other antibiotic agents; Z91.030 Bee allergy status; Z91.018 Allergy to other foods
CPT/HCPCS: 76816; 76817; 99212

== ENCOUNTER → 2021-01-19 12:44 | Outpatient (BNVA) | payer MEDICAID, SELFPAY | PROVIDERS: Visit Provider Advanced Practice Midwife | DX: O24.419 Gestational diabetes mellitus in pregnancy, unspecified control (principal); O44.42 Low lying placenta NOS or without hemorrhage, second trimester; Z3A.26 26 weeks gestation of pregnancy; Z36.3 Encounter for antenatal screening for malformations | CPT/HCPCS: 81003; 99212 ==

== ENCOUNTER 2021-02-08 10:48 | Outpatient (REF) | payer MEDICAID, SELFPAY ==
[2021-02-08 15:37] LABS: Hematocrit 36.5 % (37.0-47.0); Hemoglobin 12.1 g/dl (12.0-16.0); Mean Corpuscular HGB Conc 33.2 g/dl (31.0-35.0); Mean Corpuscular Hemoglobin 31.4 pg (27.0-33.0); Mean Corpuscular Volume 94.8 fL (80.0-98.0); Mean Platelet Volume 10.6 fL (9.4-12.3); Platelet Count 268 X10*3/uL (160-400); Red Blood Count 3.85 X10*6/uL (4.20-5.50); Red Cell Distribution Width 13.2 % (11.0-16.0); White Blood Count 12.6 X10*3/uL (4.8-10.8)
[2021-02-08 16:50] LABS: Amphetamine Screen Urine Not Detected (Not Detect); Barbiturates, Urine Not Detected (Not Detect); Benzodiazepines Screen Urine Not Detected (Not Detect); Cannabinoid Screen Urine POSITIVE (Not Detect); Cocaine Screen Urine Not Detected (Not Detect); Fentanyl, urine Not Detected (Not Detect); Opiate Screen Urine Not Detected (Not Detect); Phencyclidine Screen Urine Not Detected (Not Detect)
[2021-02-09 08:27] LABS: Syphilis Screen Nonreactive (Nonreactive)
== END 2021-02-08 10:49 | disposition home or self-care (01) ==
LOC: HO.LAB 10:48
PROVIDERS: PCP Student in an Organized Health Care Education/Training Program; Visit Provider Obstetrics & Gynecology
DX: Z34.93 Encounter for supervision of normal pregnancy, unspecified, third trimester (principal); Z3A.29 29 weeks gestation of pregnancy
CPT/HCPCS: 80307; 85027; 86780; 99212

== ENCOUNTER 2021-02-11 13:44 | Outpatient (REF) | payer MEDICAID, SELFPAY ==
--- NOTE | ~2021-02-11 | US_ITS ---
EXAMINATION: OBSTETRICAL ULTRASOUND, Follow up HISTORY: A 30-year-old at the 29.3 weeks of gestation History of LEEP Size date discrepancy Marginal placenta previa COMPARISON: 01/07/2021 TECHNIQUE: Real time transabdominal imaging with color and M-mode Doppler. Transvaginal ultrasound was performed using an endovaginal probe. PRESENTATION: Vertex PLACENTA LOCATION: Posterior without previa AMNIOTIC FLUID: RODY 13.4 cm MEASUREMENTS: 1. Biparietal Diameter: 6.7 cm; 27.1 wks 2. Head Circumference: 25.2 cm; 27.3 wks 3. Abdominal Circumference: 24.4 cm; 28.5 wks 4. Femur Length: 5.6 cm; 29.3 wks 5. Heart Rate: 142 beats per minute WEIGHT: EFW: 1261 grams (2 lbs 12 oz) -- 15 %. BIOPHYSICAL PROFILE: Motion: 2 Tone: 2 Breathin Amniotic Fluid: 2 Total score: 8/8 UA Doppler: S/D 3.4 Cervix: 4.7 cm without funneling (T/V) The placental edge is 1.7 cm from the internal os consistent with low-lying placenta. GESTATIONAL AGE: 1. Established GA: 29.3 wks 2. GA from A: 28.2 wks ESTIMATED DATE OF DELIVERY: 1. Established SOLANGE: 04/26/2021 2. SOLANGE from [facility]: 05/04/2021 US/US OB velocimetry umbilical ar IMPRESSION: 1. A single active fetus is in vertex presentation 2. Size equals dates, EFW corresponds to 15th percentile. Compared to the previous exam, there has been an appropriate interval growth. 3. Reassuring biophysical profile with normal Doppler and RODY. 4. Low-lying placenta (1.7 cm) 5. Normal cervical length I reviewed the limitations of ultrasound and estimating weight and the clinical significance of percentile ranking of EFW. Although the EFW corresponds to 15th percentile, this represents an appropriate interval growth from prior exam. I reassured her that the biophysical profile and the Doppler study of the umbilical artery showed normal SD ratio. The placenta is low-lying, butt will most likely resolve later in gestation. She denies vaginal bleeding or fluid leakage. She has one hour GLT pending. A follow-up in approximately one month is suggested (not scheduled) Thank you very much for this referral. Total time 30 minutes. The time spent was devoted to counseling the patient about the disease and diagnosis, coordinating care including reviewing her records, pertinent lab data and studies, as well as discussing diagnostic evaluation and workup, plan therapeutic interventions and future disposition of care. This includes any additional research needed to obtain further information in formulating the plan of care of this patient. This note was generated with a voice recognition program. Please excuse any errors which may have been overlooked during my review of this note. Sometimes these errors may affect the content or meaning of a given sentence.
--- NOTE | ~2021-02-11 | US_ITS ---
EXAMINATION: OBSTETRICAL ULTRASOUND, Follow up HISTORY: A 30-year-old at the 29.3 weeks of gestation History of LEEP Size date discrepancy Marginal placenta previa COMPARISON: 01/07/2021 TECHNIQUE: Real time transabdominal imaging with color and M-mode Doppler. Transvaginal ultrasound was performed using an endovaginal probe. PRESENTATION: Vertex PLACENTA LOCATION: Posterior without previa AMNIOTIC FLUID: RODY 13.4 cm MEASUREMENTS: 1. Biparietal Diameter: 6.7 cm; 27.1 wks 2. Head Circumference: 25.2 cm; 27.3 wks 3. Abdominal Circumference: 24.4 cm; 28.5 wks 4. Femur Length: 5.6 cm; 29.3 wks 5. Heart Rate: 142 beats per minute WEIGHT: EFW: 1261 grams (2 lbs 12 oz) -- 15 %. BIOPHYSICAL PROFILE: Motion: 2 Tone: 2 Breathin Amniotic Fluid: 2 Total score: 8/8 UA Doppler: S/D 3.4 Cervix: 4.7 cm without funneling (T/V) The placental edge is 1.7 cm from the internal os consistent with low-lying placenta. GESTATIONAL AGE: 1. Established GA: 29.3 wks 2. GA from AUA: 28.2 wks ESTIMATED DATE OF DELIVERY: 1. Established SOLANGE: 04/26/2021 2. SOLANGE from A: 05/04/2021 US/US OB transvaginal IMPRESSION: 1. A single active fetus is in vertex presentation 2. Size equals dates, EFW corresponds to 15th percentile. Compared to the previous exam, there has been an appropriate interval growth. 3. Reassuring biophysical profile with normal Doppler and RODY. 4. Low-lying placenta (1.7 cm) 5. Normal cervical length I reviewed the limitations of ultrasound and estimating weight and the clinical significance of percentile ranking of EFW. Although the EFW corresponds to 15th percentile, this represents an appropriate interval growth from prior exam. I reassured her that the biophysical profile and the Doppler study of the umbilical artery showed normal SD ratio. The placenta is low-lying, butt will most likely resolve later in gestation. She denies vaginal bleeding or fluid leakage. She has one hour GLT pending. A follow-up in approximately one month is suggested (not scheduled) Thank you very much for this referral. Total time 30 minutes. The time spent was devoted to counseling the patient about the disease and diagnosis, coordinating care including reviewing her records, pertinent lab data and studies, as well as discussing diagnostic evaluation and workup, plan therapeutic interventions and future disposition of care. This includes any additional research needed to obtain further information in formulating the plan of care of this patient. This note was generated with a voice recognition program. Please excuse any errors which may have been overlooked during my review of this note. Sometimes these errors may affect the content or meaning of a given sentence.
== END 2021-02-11 13:45 | disposition home or self-care (01) ==
LOC: HO.US 13:44
PROVIDERS: PCP Student in an Organized Health Care Education/Training Program; Visit Provider Advanced Practice Midwife
DX: O35.9XX0 Maternal care for (suspected) fetal abnormality and damage, unspecified, not applicable or unspecified (principal); O44.43 Low lying placenta NOS or without hemorrhage, third trimester; O36.5930 Maternal care for other known or suspected poor fetal growth, third trimester, not applicable or unspecified; O99.810 Abnormal glucose complicating pregnancy
CPT/HCPCS: 76816; 76817; 76820

== ENCOUNTER → 2021-02-23 09:16 | Outpatient (BNVA) | payer MEDICAID, SELFPAY | PROVIDERS: PCP Student in an Organized Health Care Education/Training Program; Visit Provider Advanced Practice Midwife | DX: O24.419 Gestational diabetes mellitus in pregnancy, unspecified control (principal); O44.43 Low lying placenta NOS or without hemorrhage, third trimester; O34.43 Maternal care for other abnormalities of cervix, third trimester; Z98.890 Other specified postprocedural states; Z3A.31 31 weeks gestation of pregnancy | CPT/HCPCS: 81003; 99212 ==

== ENCOUNTER 2021-03-04 11:25 | Outpatient (REF) | payer MEDICAID, SELFPAY ==
--- NOTE | ~2021-03-04 | US_ITS ---
EXAMINATION: OBSTETRICAL ULTRASOUND, Follow up HISTORY: 30-year-old at the 32.3 weeks of gestation Low-lying placenta Size date discrepancy COMPARISON: 02/11/2021 TECHNIQUE: Real time transabdominal imaging with color and M-mode Doppler. Transvaginal ultrasound was performed with endovaginal probe. PRESENTATION: Vertex PLACENTA LOCATION: Posterior, and the lower edge of the placenta is a 3.1 cm away from the cervix. AMNIOTIC FLUID: RODY 10.1 cm MEASUREMENTS: 1. Biparietal Diameter: 7.4 cm; 29.5 wks 2. Head Circumference: 27.2 cm; 29.5 wks 3. Abdominal Circumference: 27.8 cm; 32.0 wks 4. Femur Length: 6.2 cm; 32.0 wks 5. Heart Rate: 150 beats per minute WEIGHT: EFW: 1779 grams (3 lbs 15 oz) -- 16 %. BIOPHYSICAL PROFILE: Motion: 2 Tone: 2 Breathin Amniotic Fluid: 2 Total score: 8/8 GESTATIONAL AGE: 1. Established GA: 32.3 wks [address] GA [address] [facility]: 30.6 wks ESTIMATED DATE OF DELIVERY: 1. Established SOLANGE: 04/26/2021 2. SOLANGE from AUA: 05/07/2021 US/US OB transvaginal IMPRESSION: 1. A single active fetus is in vertex presentation 2. Size equals dates, EFW corresponds to 16th percentile 3. The placenta is greater than [address] from the cervix. It is no longer low lying. 4. The cervical length is 4.2 cm. 5. Reassuring BPP with normal amniotic fluid index. I reviewed today's ultrasound findings and informed her that the placenta is the sufficiently away from the cervix for her to attempt a vaginal delivery. She denies vaginal bleeding or contractions. I reassured her that the placenta will continue to move further away from the cervix and that it will not return to the low-lying position. The EFW corresponds to 16th percentile. I reviewed the limitations of ultrasound and estimating weights. Further follow-up has not been scheduled. Thank you very much for this referral. Total time 30 minutes. The time spent was devoted to counseling the patient about the disease and diagnosis, coordinating care including reviewing her records, pertinent lab data and studies, as well as discussing diagnostic evaluation and workup, plan therapeutic interventions and future disposition of care. This includes any additional research needed to obtain further information in formulating the plan of care of this patient. This note was generated with a voice recognition program. Please excuse any errors which may have been overlooked during my review of this note. Sometimes these errors may affect the content or meaning of a given sentence.
--- NOTE | ~2021-03-04 | US_ITS ---
EXAMINATION: OBSTETRICAL ULTRASOUND, Follow up HISTORY: 30-year-old at the 32.3 weeks of gestation Low-lying placenta Size date discrepancy COMPARISON: 02/11/2021 TECHNIQUE: Real time transabdominal imaging with color and M-mode Doppler. Transvaginal ultrasound was performed with endovaginal probe. PRESENTATION: Vertex PLACENTA LOCATION: Posterior, and the lower edge of the placenta is a 3.1 cm away from the cervix. AMNIOTIC FLUID: RODY 10.1 cm MEASUREMENTS: 1. Biparietal Diameter: 7.4 cm; 29.5 wks 2. Head Circumference: 27.2 cm; 29.5 wks 3. Abdominal Circumference: 27.8 cm; 32.0 wks 4. Femur Length: 6.2 cm; 32.0 wks 5. Heart Rate: 150 beats per minute WEIGHT: EFW: 1779 grams (3 lbs 15 oz) -- 16 %. BIOPHYSICAL PROFILE: Motion: 2 Tone: 2 Breathin Amniotic Fluid: 2 Total score: 8/8 GESTATIONAL AGE: 1. Established GA: 32.3 wks 2. GA from AUA: 30.6 wks ESTIMATED DATE OF DELIVERY: 1. Established SOLANGE: 04/26/2021 2. SOLANGE from AUA: 05/07/2021 US/US OB follow up IMPRESSION: 1. A single active fetus is in vertex presentation 2. Size equals dates, EFW corresponds to 16th percentile 3. The placenta is greater than [address] from the cervix. It is no longer low lying. 4. The cervical length is 4.2 cm. 5. Reassuring BPP with normal amniotic fluid index. I reviewed today's ultrasound findings and informed her that the placenta is the sufficiently away from the cervix for her to attempt a vaginal delivery. She denies vaginal bleeding or contractions. I reassured her that the placenta will continue to move further away from the cervix and that it will not return to the low-lying position. The EFW corresponds to 16th percentile. I reviewed the limitations of ultrasound and estimating weights. Further follow-up has not been scheduled. Thank you very much for this referral. Total time 30 minutes. The time spent was devoted to counseling the patient about the disease and diagnosis, coordinating care including reviewing her records, pertinent lab data and studies, as well as discussing diagnostic evaluation and workup, plan therapeutic interventions and future disposition of care. This includes any additional research needed to obtain further information in formulating the plan of care of this patient. This note was generated with a voice recognition program. Please excuse any errors which may have been overlooked during my review of this note. Sometimes these errors may affect the content or meaning of a given sentence.
== END 2021-03-04 11:26 | disposition home or self-care (01) ==
LOC: HO.US 11:25
PROVIDERS: PCP Student in an Organized Health Care Education/Training Program; Visit Provider Advanced Practice Midwife
DX: O44.43 Low lying placenta NOS or without hemorrhage, third trimester (principal)
CPT/HCPCS: 76816; 76817

== ENCOUNTER → 2021-03-11 12:14 | Outpatient (BNVA) | payer MEDICAID, SELFPAY | PROVIDERS: PCP Student in an Organized Health Care Education/Training Program; Visit Provider Advanced Practice Midwife | DX: Z34.83 Encounter for supervision of other normal pregnancy, third trimester (principal); Z3A.33 33 weeks gestation of pregnancy | CPT/HCPCS: 99212 ==

== ENCOUNTER 2021-04-04 08:54 | Outpatient (REF) | payer MEDICAID, SELFPAY ==
[2021-04-05 09:10] LABS: BV Int Neg Control Negative (Negative); BV Int Pos Control Positive (Positive)
== END 2021-04-04 08:55 | disposition home or self-care (01) ==
LOC: HO.LAB 08:54
PROVIDERS: PCP Student in an Organized Health Care Education/Training Program; Visit Provider Advanced Practice Midwife
DX: Z34.93 Encounter for supervision of normal pregnancy, unspecified, third trimester (principal); Z3A.36 36 weeks gestation of pregnancy; Z20.2 Contact with and (suspected) exposure to infections with a predominantly sexual mode of transmission
CPT/HCPCS: 81003; 87480; 87491; 87510; 87591; 87660; 99212

== ENCOUNTER → 2021-04-14 14:40 | Outpatient (BNVA) | payer MEDICAID, SELFPAY | PROVIDERS: Visit Provider Advanced Practice Midwife | DX: O26.893 Other specified pregnancy related conditions, third trimester (principal); R73.9 Hyperglycemia, unspecified; Z98.890 Other specified postprocedural states; Z3A.38 38 weeks gestation of pregnancy | CPT/HCPCS: 99212 ==

== ENCOUNTER 2022-10-05 13:48 | Outpatient (AMB) | payer MEDICAID, SELFPAY ==
--- NOTE | 2022-10-05 13:58 | A.OFFVIS_ITS ---
Intake Vital Signs 10/05/22 14:04 Height 4 ft 11 in Weight 127 lb 8 oz BMI 25.7 BP 112/62 Blood Pressure Location Rt brachial Position Sitting Intake Visit Reasons: BC Consult Intake Note: Pt interested in starting BCP or option with least amount of hormones Bridal Sales Consultant Required: No Accompanied by: Self / Same As Patient Allergies apple [Apple] Allergy (Unknown, Verified 04/04/21 09:02) ANGIOEDEMA bee pollen [BEE STINGS] Allergy (Unknown, Verified 04/04/21 09:02) ANAPHYLACTIC SHOCK nitrofurantoin [From MACROBID] Allergy (Unknown, Verified 04/04/21 09:02) NAUSEA & VOMITING Is last menstrual period known: Yes Last menstrual period: 09/14/22 HPI BC Consult HPI Details Patient is here to discuss control. She has been on pills before and she wants to get back on pills she sort of remembers how to take them but we are reviewing it during this visit. She is due for her period sometime next week as her last period was on the 14 of September and she denies any contraindications to OCPs. She is on her way to the [place] roller picker her child from school. She says she is due for Pap smear and needs to schedule that visit as well. 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 Alcohol intake: current Alcohol intake frequency: holidays/special occasions only Patient Tobacco Use Status: Never used Tobacco Trauma History: Neg trauma HX per pt Special shena needs: No Agree to transfusion: Yes Sexual orientation: Straight/Heterosexual Gender identity: Female Female Reproductive History Menstrual Age of Menarche: 14 Date of last menstrual period: 09/14/22 Total pregnancies: 5 Number of Living Children: 2 Ab spontaneous: 3 Date of last pap smear: 09/20/20 Physical Exam Vital Signs: Last Vital Signs BP 112/62 10/05/22 14:04 BMI result Body Mass Index 25.7 Const Other: deferred Results AMB Test Urine AMB Test Urine Negative Last Edit by Luda Glover CMA on 14:24 Results Reviewed Results Reviewed: Laboratory Last Values [facility] Clinic Negative 10/05/22 14:19 Assessment & Plan Assessment & Plan (1) BCP ( control pills) initiation: Code(s): Z30.011 - Encounter for initial prescription of contraceptive pills Plan Discussed oral contraceptive pills and reviewed danger signs if she ever got any signs and symptoms of blood clot in her leg or chest or head to go to the emergency room and let them know she is on control pills she is a nonsmoker. Reviewed what to do if she misses pills. I recommend to her that she starts on the 1st or 2nd day of her next period and take the pill at the same time every day I did review exactly how to take them and go from 1 pill pack to the next will see her in 3 months to see how she is doing on the pills but she is also due for an annual exam so they may end up being the same appointment and that is fine.. Orders: Orders AMB HCG Urine Test Today Z30.011 - Encounter for initial prescription of contraceptive pills Medications: New norethindrone-e.estradiol-iron 1 mg-20 mcg (24)/75 mg (4) 1 tab PO DAILY 84 tabs 3RF Coding Level of Care Code Est Pt Level 3 (05945) Diagnoses BCP ( control pills) initiation Z30.011
[2022-10-05 14:04] VITALS: BP 112/62; BMI 25.7
== END 2022-10-06 08:09 | disposition home or self-care (01) ==
LOC: HO.HWS 13:48
PROVIDERS: Visit Provider Advanced Practice Midwife
DX: Z30.011 Encounter for initial prescription of contraceptive pills (principal)
CPT/HCPCS: 99213

== ENCOUNTER → 2022-10-05 13:48 | Outpatient (BNVA) | payer MEDICAID, SELFPAY | PROVIDERS: Visit Provider Advanced Practice Midwife | DX: Z30.011 Encounter for initial prescription of contraceptive pills (principal) | CPT/HCPCS: 81025; 99213 ==

== ENCOUNTER 2023-06-03 15:39 | Emergency (ER) | payer MEDICAID, SELFPAY ==
--- NOTE | ~2023-06-03 | US_ITS ---
EXAMINATION: US ABDOMEN LIMITED CLINICAL INFORMATION: Right upper quadrant pain. COMPARISON: None available. TECHNIQUE: Real-time imaging of the right upper quadrant abdominal viscera. Exam targeted only for the gallbladder and biliary tree as per referring provider. FINDINGS: The gallbladder is unremarkable. No stones. No acute inflammatory changes. The biliary tree is normal with the CBD only measuring 3 mm FREE FLUID: None. US/US abdomen limited IMPRESSION: Normal gallbladder.
--- NOTE | ~2023-06-03 | XR_ITS ---
EXAMINATION: XR CHEST CLINICAL INFORMATION: Chest pain COMPARISON: None available. TECHNIQUE: 2 views of the chest were obtained. FINDINGS: No significant abnormality is noted involving the heart, lungs, mediastinum, bony thorax or soft tissues. XR/XR chest 2V IMPRESSION: Unremarkable examination.
--- NOTE | 2023-06-03 15:52 | ECG_ITS ---
Test Reason : CHEST PAIN Blood Pressure : / mmHG Vent. Rate : 069 BPM Atrial Rate : 069 BPM P-R Int : 126 ms QRS Dur : 084 ms QT Int : 388 ms P-R-T Axes : 027 048 031 degrees QTc Int : 415 ms Normal sinus rhythm Normal ECG When compared with ECG of 04-JUN-2012 21:07, Nonspecific T wave abnormality now evident in Anterior leads Referred By: Generic ED Physician Electronically Signed By:CHIDI SAMUEL MD
[2023-06-03 16:31] VITALS: BP 124/83; PULSE 82; RESP 17; TEMP 36.6; O2SAT 98; BMI 26.7
--- NOTE | 2023-06-03 16:32 | ED_ITS ---
HPI - Chest Pain General Chief Complaint: Chest Pain Stated Complaint: Chest pain since yesterday Time Seen by Provider: 06/03/23 19:13 Source: patient and family Mode of arrival: ambulatory Limitations: no limitations History of Present Illness HPI narrative: 33-year-old female with no known medical history who has a significant family history of cardiac disease presents to the ER with the complaints of chest pain since yesterday with waking, intermittent not worsened with exertion, deep breathing or movement. Pain is worsened with eating. Patient reports pain radiates to her back, she has had vomiting. No diarrhea, shortness of breath, cough, leg swelling, leg pain, fevers, chills, recent URI. No recent travel or sick contact. Related Data Previous Rx's Medication Instructions Recorded norethindrone 1 mg-ethinyl 1 tab PO DAILY #84 tabs 10/05/22 estradiol 20 mcg (24)-iron 75 mg (4) tablet Allergies Allergy/AdvReac Type Severity Reaction Status Date / Time apple [Apple] Allergy Unknown ANGIOEDEMA Verified 06/03/23 16:30 bee pollen [BEE STINGS] Allergy Unknown ANAPHYLACTIC Verified 06/03/23 16:30 SHOCK nitrofurantoin Allergy Unknown NAUSEA & Verified 06/03/23 16:30 [From MACROBID] VOMITING Review of Systems 2 Review of Systems: Yes all other systems are reviewed and are negative Constitutional: Constitutional: Reports no additional constitutional complaints, Denies body ache(s), Denies chills, Denies fever(s), Denies headache(s) and Denies weakness Eyes: Eyes: Reports no additional eye complaints and Denies change in vision ENT: Reports system reviewed and no additional complaints, except as documented, Denies dizziness, Denies headache(s), Denies nasal congestion, Denies nasal discharge and Denies neck pain Cardiovascular: Cardiovascular: Reports no additional cardiovascular complaints, Reports chest pain, Denies leg edema and Denies dyspnea Respiratory: Respiratory: Reports no additional respiratory complaints, Denies cough and Denies dyspnea Gastrointestinal: Gastrointestinal: Reports no additional gastrointestinal complaints, Denies abdominal pain, Denies diarrhea, Reports nausea and Reports vomiting Genitourinary: Genitourinary: Reports no additional female genitourinary complaints and Denies urinary incontinence Musculoskeletal: Musculoskeletal: Reports no additional musculoskeletal complaints, Reports back pain, Denies arthralgias, Denies joint swelling, Denies neck pain, Denies numbness and Denies tingling Integumentary/Breasts: Skin/Breast: Reports system reviewed and no additional complaints, except as docu and Denies rash Neurologic: Reports system reviewed and no additional complaints, except as documented, Denies Abnormal speech present, Denies dizziness, Denies headache(s), Denies numbness, Denies tingling and Denies weakness PMFSH Past Medical History Attestation statement: The following information was validated with the patient. 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 at home: Yes Alcohol intake: current Alcohol intake frequency: holidays/special occasions only Patient Tobacco Use Status: Never used Tobacco Trauma History: Neg trauma HX per pt Special shena needs: No Agree to transfusion: Yes Advance Directives: No Advance Directives Information Provided: No Sexual orientation: Straight/Heterosexual Gender identity: Female Physical Exam 2 Vital Signs: Vital Signs: Last Vital Signs Temp 99.1 F 06/03/23 20:34 Pulse 73 06/03/23 20:34 Resp 18 06/03/23 20:34 BP 126/67 06/03/23 20:34 Pulse Ox 99 06/03/23 20:34 O2 Del Method Room Air 06/03/23 20:34 BMI result Body Mass Index 26.7 Const: General: cooperative, healthy appearing, comfortable and no acute distress Orientation/consciousness: patient oriented x3 Limitations: no limitations HEENT: Head: Yes normal to inspection Ears: hearing grossly normal bilaterally General nose exam: Normal external nose present Face and sinus: Yes normal facial exam Mouth: Normal oral and palatal mucosa present Throat: Yes posterior oropharynx normal Eyes: General: appearance normal, both eyes and all related structures P upils: Equal, round and reactive pupils present Neck: Neck: Yes normal visual inspection Chest: Chest palpation & inspection: normal inspection of the chest Resp: Effort & Inspection: normal respiratory effort Auscultation: clear to auscultation bilaterally Cardio: Rate: regular rate Rhythm: regular rhythm Peripheral pulses: P eripheral pulses 2+ throughout GI: Inspection: Yes normal to inspection Palpation (GI): Soft to palpation, Tenderness to palpation present (GI) in the epigastrum; with no rebound tenderness and no guarding Auscultation: normal bowel sounds Back/Spine/Pelvis: Thoracic/Lumbar Spine: thoracic and lumbar spine normal to inspection Skin: General skin exam: no rashes or lesions noted Neuro: General: patient oriented x3, no focal motor deficits and normal sensation to monofilament Cranial nerves: Yes Equal, round and reactive pupils present Cognition (Neuro): normal cognition Speech: No Abnormal speech present Gait exam (Neuro): Normal gait present Motor exam (neuro): 5/5 motor strength present throughout Extrem: General: Yes normal to inspection, Yes no pedal edema and Yes no calf tenderness Course Course Course Narrative: This is a rapid medical exam. Defer additional HPI, ROS, PE to primary provider. 33-year-old female with no known medical history who has a significant family history of cardiac disease presents to the ER with the complaints of chest pain since yesterday with waking, intermittent not worsened with exertion. Will obtain EKG, labs, chest x-ray VSS Reevaluation(s) Reevaluation #1: Doubt ACS as patient has had symptoms for 48 hours with nonischemic EKG and negative troponin. Also her history of present illness is atypical for ACS. She does have some epigastric pain and has had some vomiting and so she may have some underlying gastritis or GERD her LFTs are normal as well as her lipase so I doubt pancreatitis or acute abdominal pathology. Her ultrasound is pending. Her viral testing is pending. We did attempt sublingual Zofran and Maalox but the patient vomited this. Therefore she does have an IV placed and will receive IV antiemetics, fluids and a a PPI. She does have some mild discomfort but reports that her main concern is her nausea and vomiting. Her abdominal pain is and chest pain or mild per patient. Overall patient is very non-toxic, smiling, interactive with staff Reevaluation #2: 2100-Sign out to Allie pending US, viral testing and Po trial Time: 22:27 Reevaluation #3: Received patient in sign-out pending ultrasound, viral testing and p.o. trial. Ultrasound unremarkable, no evidence of cholecystitis, viral swabs all negative and patient has been able to tolerate p.o. reports improvement in symptoms. Feel patient is stable for discharge home at this time. Instructed patient to follow-up with her primary care provider. Return precautions discussed. Patient verbalized understanding of and agreement with plan. Medications Administered Discontinued Medications Generic Name Dose Route Start Last Admin Trade Name Freq PRN Reason Stop Dose Admin Al Hydroxide/Mg Hydroxide 30 ml 06/03/23 19:25 06/03/23 19:46 Magnesium Hydrox/Alum Hydrox 30 Ml Oral.Susp PO 06/03/23 19:26 30 ml ONCE ONE Administration Diphenhydramine HCl 25 mg 06/03/23 20:41 06/03/23 20:55 Diphenhydramine Hcl 50 Mg/Ml Vial IVPUSH 06/03/23 20:42 25 mg ONCE ONE Administration Famotidine 20 mg 06/03/23 20:41 06/03/23 21:00 Famotidine/Pf 20 Mg/2 Ml Vial IVPUSH 06/03/23 20:42 20 mg ONCE ONE Administration Sodium Chloride 1,000 mls @ 999 mls/hr 06/03/23 20:41 06/03/23 20:53 Ns IV 06/03/23 21:41 999 mls/hr .Q1H1M STA Administration Ketorolac Tromethamine 15 mg 06/03/23 20:41 06/03/23 20:55 Ketorolac Tromethamine 15 Mg/Ml Vial IVPUSH 06/03/23 20:42 15 mg ONCE ONE Administration Lidocaine HCl 15 ml 06/03/23 19:25 06/03/23 19:46 Lidocaine Hcl Viscous 2 % 15 Ml Solution MUCOUS MEM 06/03/23 19:26 15 ml ONCE ONE Administration Metoclopramide HCl 10 mg 06/03/23 20:41 06/03/23 21:17 Metoclopramide Hcl 10 Mg/2 Ml Vial IVPUSH 06/03/23 20:42 10 mg ONCE ONE Administration Ondansetron HCl 4 mg 06/03/23 18:56 06/03/23 18:58 Ondansetron Odt 4 Mg Tab.Cassia SHORT 06/03/23 18:57 4 mg ONCE ONE Administration Medical Decision Making Medical Decision Making [facility] Narrative: 33-year-old female with no known medical history who has a significant family history of cardiac disease presents to the ER with the complaints of chest pain since yesterday with waking, intermittent not worsened with exertion, deep breathing or movement. Patient reports pain radiates to her back, she has had vomiting. No diarrhea, shortness of breath, cough, leg swelling, leg pain, fevers, chills, recent URI. No recent travel or sick contact. There is mild discomfort to the epigastrium. There is no focal tenderness in the other areas of the abdomen. Lungs are clear. Vitals are stable. Will obtain labs, EKG, chest x-ray, abdominal ultrasound Will give Zofran, GI cocktail Differential Diagnosis Differential Diagnoses: The differential diagnosis associated with the presentation includes ACS Low suspicion for PE or aortic dissection Gastritis, GERD, cholecystitis, pancreatitis Admission/Observation Consideration of admission/observation: Escalation of care including admission/observation considered Lab Data [facility] Lab Attestation statement: I reviewed the patient's lab results. 06/03/23 17:15 06/03/23 17:15 Labs: Lab Results 06/03/23 06/03/23 Range/Units 17:15 21:39 WBC 8.4 (4.8-10.8) X10*3/uL RBC 4.66 D (4.20-5.50) X10*6/uL Hgb 14.4 (12.0-16.0) g/dl Hct 44.1 D (37.0-47.0) % MCV 94.6 (80.0-98.0) fL MCH 30.9 (27.0-33.0) pg MCHC 32.7 (31.0-35.0) g/dl RDW 12.8 (11.0-16.0) % Plt Count 269 (160-400) X10*3/uL MPV 10.7 (9.4-12.3) fL Immature Gran % (Auto) 0.4 (0.0-0.4) % Neut % (Auto) 72.3 (45-73) % Lymph % (Auto) 21.0 (20-40) % [place] % (Auto) 5.7 (2-11) % Eos % (Auto) 0.1 (0-4) % Baso % (Auto) 0.5 (0-2) % Lymph # (Auto) 1.8 (1.2-4.9) X10*3/uL [place] # (Auto) 0.5 (0.1-1.2) X10*3/uL Eos # (Auto) 0.0 (0.0-0.4) X10*3/uL Baso # (Auto) 0.0 (0.0-0.2) X10*3/uL Abs Immat Gran (auto) 0.03 (0.00-0.03) X10*3/uL Absolute Neuts (auto) 6.1 (2.0-8.3) x10*3/uL Absolute Nucleated RBC 0.000 (0.0-0.012) X10*3/uL Nucleated RBC % (auto) 0.0 (0.0-0.2) /100WBC Sodium 142 (135-145) mmol/L Potassium 3.9 (3.3-5.1) mmol/L Chloride 105 (96-108) mmol/L Carbon Dioxide 28 (22-29) mmol/L Anion Gap 13 (12-20) BUN 14 (9-16) mg/dL Creatinine 0.74 (0.5-1.4) mg/dL Estim Creat Clear Calc 85.9 Estimated GFR > 60 Random Glucose 93 (60-115) mg/dL Calcium 10.0 (8.4-10.2) mg/dL Total Bilirubin 0.6 (0.0-1.0) mg/dL Direct Bilirubin 0.2 (0.0-0.5) mg/dL AST 16 (5-31) U/L ALT 18 (0-31) U/L Alkaline Phosphatase 72 (39-117) U/L Troponin I High Sens < 2.7 (<3.5-17.0) ng/L Total Protein 7.8 (6.5-8.0) g/dL Albumin 4.6 (3.5-5.0) g/dL Lipase 18 (8-78) U/L Influenza Type A (PCR) NEGATIVE (Negative) Influenza Type B (PCR) NEGATIVE (Negative) RSV RNA Qual (PCR) NEGATIVE (Negative) SARS-CoV-2 RNA (RT-PCR) NEGATIVE (Negative) Independent Interpretation I performed an independent interpretation of an: EKG, Plain X-Ray and Ultrasound Interpretation: I independently reviewed the EKG and agree with Radiology reporting some independently reviewed the chest x-ray and agree with the radiology report Radiology Impression Discussion of test interpretation with radiology: I have reviewed the radiologist's reading. Radiologist Impression: TECHNIQUE: 2 views of the chest were obtained. FINDINGS: No significant abnormality is noted involving the heart, lungs, mediastinum, bony thorax or soft tissues. XR/XR chest 2V IMPRESSION: Unremarkable examination. Independent Historian Clinical information obtained from an independent historian. History obtained from or confirmed by: Spouse Discharge Plan Discharge Clinical Impression: Chest pain Patient Disposition: Home, Self-Care Instructions: Chest Pain (ED) Additional Instructions: Eat a bland diet, advanced as tolerated. Return for worsening symptoms Follow-up with your PCP outpatient Your lab work, EKG, Chest-xray and ultrasound are reassuring. Prescriptions: No Action norethindrone-e.estradiol-iron 1 mg-20 mcg (24)/75 mg (4) tablet 1 tab PO DAILY Qty: 84 3RF Referrals: Yolanda Villegas MD [Primary Care Provider] - 1 week
[2023-06-03 17:58] LABS: MANUAL DIFF FLAG NO
[2023-06-03 18:00] LABS: Basophils Percent Auto 0.5 % (0-2); Eosinophils Percent Auto 0.1 % (0-4); Hematocrit 44.1 % (37.0-47.0); Hemoglobin 14.4 g/dl (12.0-16.0); Imm Gran Abs Auto 0.03 X10*3/uL (0.00-0.03); Imm Gran Pct Auto 0.4 % (0.0-0.4); Lymphocytes Absolute Auto 1.8 X10*3/uL (1.2-4.9); Mean Corpuscular HGB Conc 32.7 g/dl (31.0-35.0); Mean Corpuscular Hemoglobin 30.9 pg (27.0-33.0); Mean Corpuscular Volume 94.6 fL (80.0-98.0); Mean Platelet Volume 10.7 fL (9.4-12.3); Monocytes Absolute Auto 0.5 X10*3/uL (0.1-1.2); Monocytes Percent Auto 5.7 % (2-11); Neutrophils Absolute Auto 6.1 x10*3/uL (2.0-8.3); Neutrophils Percent Auto 72.3 % (45-73); Platelet Count 269 X10*3/uL (160-400); Red Blood Count 4.66 X10*6/uL (4.20-5.50); Red Cell Distribution Width 12.8 % (11.0-16.0); White Blood Count 8.4 X10*3/uL (4.8-10.8)
[2023-06-03 18:17] LABS: Alanine Aminotransferase 18 U/L (0-31); Albumin Level 4.6 g/dL (3.5-5.0); Alkaline Phosphatase 72 U/L (39-117); Anion Gap 13 (12-20); Aspartate Amino Transferase 16 U/L (5-31); Bilirubin Direct 0.2 mg/dL (0.0-0.5); Bilirubin Total 0.6 mg/dL (0.0-1.0); Blood Urea Nitrogen 14 mg/dL (9-16); Carbon Dioxide 28 mmol/L (22-29); Chloride 105 mmol/L (96-108); Creatinine Clr Calc Pharmacy 85.9; Estimated Glomerular Filt Rate > 60; Glucose Random 93 mg/dL (60-115); Lipase 18 U/L (8-78); Potassium 3.9 mmol/L (3.3-5.1); Sodium 142 mmol/L (135-145); Total Protein 7.8 g/dL (6.5-8.0)
[2023-06-03 18:31] LABS: Troponin-I High Sensitivity < 2.7 ng/L (<3.5-17.0)
[2023-06-03] MEDS: Ondansetron ODT 4 MG TAB.RAPDIS TRANSLINGU (18:58)
--- NOTE | 2023-06-03 19:05 | PC.NURSE ---
medicated with zofran or n/v
[2023-06-03] MEDS: Magnesium Hydrox/Alum Hydrox 30 ML ORAL.SUSP PO (19:46)
[2023-06-03] MEDS: Lidocaine HCl Viscous 2 % 15 ML SOLUTION MUCOUS MEM (19:46)
[2023-06-03 20:34] VITALS: BP 126/67; PULSE 73; RESP 18; TEMP 37.3; O2SAT 99
[2023-06-03] MEDS: 0.9 % Sodium Chloride 1,000 ML 999 ML IV (20:53)
[2023-06-03] MEDS: diphenhydrAMINE HCL 50 MG/ML VIAL 25 MG IVPUSH (20:55)
[2023-06-03] MEDS: Ketorolac Tromethamine 15 MG/ML VIAL IVPUSH (20:55)
[2023-06-03] MEDS: Famotidine/PF 20 MG/2 ML VIAL IVPUSH (21:00)
[2023-06-03] MEDS: Metoclopramide HCl 10 MG/2 ML VIAL IVPUSH (21:17)
[2023-06-03 22:21] LABS: Influenza A PCR NEGATIVE (Negative); Influenza B PCR NEGATIVE (Negative); Resp Syncy Virus RNA Qual PCR NEGATIVE (Negative); SARS COV2 PCR INHOUSE NEGATIVE (Negative)
== END 2023-06-03 22:53 | disposition home or self-care (01) ==
PROVIDERS: Nurse Practitioner Family; Emergency Provider Emergency Medicine; PCP Student in an Organized Health Care Education/Training Program
DX: R07.89 Other chest pain (principal); M54.50 Low back pain, unspecified; R10.9 Unspecified abdominal pain; R11.2 Nausea with vomiting, unspecified; Z11.52 Encounter for screening for COVID-19; Z20.822 Contact with and (suspected) exposure to COVID-19; Z79.899 Other long term (current) drug therapy
CPT/HCPCS: 0241U; 36415; 71046; 76705; 80048; 80076; 83690; 84484; 85025; 93005; 96361; 96374; 96375; 99284; J1200; J1885; J2765

== ENCOUNTER → 2023-06-03 15:52 | Outpatient (BNV) | payer MEDICAID, SELFPAY | PROVIDERS: Emergency Provider Emergency Medicine; PCP Student in an Organized Health Care Education/Training Program; Visit Provider Internal Medicine Cardiovascular Disease | DX: R07.9 Chest pain, unspecified (principal) | CPT/HCPCS: 93010 ==